=== PATIENT | female | born 1990 | race African-American/Black ===

== ENCOUNTER 2020-03-14 10:28 | Emergency (ER) | payer OTHER ==
[~2020-03-14] VITALS: Ht 149.9 cm; Wt 59.0 kg
[2020-03-14 10:39] VITALS: BP 127/85
[2020-03-14 11:13] VITALS: BP 127/85
== END 2020-03-14 11:12 | disposition home or self-care (01) ==
LOC: MED 10:28
DX: R21 Rash and other nonspecific skin eruption (principal); L03.115 Cellulitis of right lower limb; L03.116 Cellulitis of left lower limb
CPT/HCPCS: 99283

== ENCOUNTER 2021-02-11 09:46 | Emergency (ER) | payer OTHER ==
[~2021-02-11] VITALS: Ht 149.9 cm; Wt 59.0 kg
[2021-02-11 10:03] VITALS: BP 145/86
--- NOTE | 2021-02-11 10:13 | NUR ---
PT COMPLAINS OF UTI SYMPTOMS X YESTERDAY. PT COMPLAINS OF INCREASED FREQUENCY, BURNING, AND LOWER ABDOMINAL PAIN X YESTERDAY. PT STATES SOME ODOR PMH - DENIES
[2021-02-11] MEDS ORDERED: PHEN-1877 PO (10:22)
[2021-02-11] MEDS ORDERED: SULF-58 PO (10:22)
--- NOTE | 2021-02-11 10:30 | NUR ---
Patient assessed, treated, and discharged with v/s stable by Dr Elliott. Written and verbal after care instructions about UTI given and explained. Patient alert, oriented and verbalized understanding of instructions. Ambulatory with steady gait. All questions addressed prior to discharge. ID band removed. Patient advised to follow up with PMD. Rx of pyridium, bactrim given. Patient educated on indication of medication including possible reaction and side effects. Opportunity to ask questions provided and answered.
[2021-02-11 10:32] VITALS: BP 145/86
== END 2021-02-11 10:30 | disposition home or self-care (01) ==
LOC: MED 09:46
DX: N39.0 Urinary tract infection, site not specified (principal); F12.90 Cannabis use, unspecified, uncomplicated; Z79.899 Other long term (current) drug therapy; Z98.890 Other specified postprocedural states
CPT/HCPCS: 81002; 81025; 99283

== ENCOUNTER 2021-02-20 12:15 | Emergency (ER) | payer OTHER ==
[~2021-02-20] VITALS: Ht 149.9 cm; Wt 59.0 kg
[~2021-02-20 12:15] MED LIST: PHEN-1877 PO; SULF-58 PO
[2021-02-20 12:45] VITALS: BP 154/112
[2021-02-20] MEDS ORDERED: LORA10TA19 PO (12:54)
[2021-02-20] MEDS ORDERED: DIPH25TA53 PO (12:54)
[2021-02-20] MEDS ORDERED: HYDR28CR38 TP (12:54)
--- NOTE | 2021-02-20 13:21 | NUR ---
NO NURSING INTERVENTIONS DONE.
--- NOTE | 2021-02-20 13:22 | NUR ---
Patient discharged with v/s stable. Written and verbal after care instructions given and explained. Patient alert, oriented and verbalized understanding of instructions. Ambulatory with steady gait. All questions addressed prior to discharge. ID band removed. Patient advised to follow up with PMD. Rx of Benadryl, Claritin and Hydrocortisone given. Patient educated on indication of medication including possible reaction and side effects. Opportunity to ask questions provided and answered.
== END 2021-02-20 13:22 | disposition home or self-care (01) ==
LOC: MED 12:15
DX: S80.861A Insect bite (nonvenomous), right lower leg, initial encounter (principal); S80.862A Insect bite (nonvenomous), left lower leg, initial encounter; L25.9 Unspecified contact dermatitis, unspecified cause; Z79.899 Other long term (current) drug therapy; W57.XXXA Bitten or stung by nonvenomous insect and other nonvenomous arthropods, initial encounter; Y93.89 Activity, other specified; Y92.89 Other specified places as the place of occurrence of the external cause; Y99.8 Other external cause status
CPT/HCPCS: 99283